=== PATIENT | female | born 1980 | race Caucasian/White ===

== ENCOUNTER → 2017-07-15 | Outpatient (CLI) | payer BC, OTHER ==
--- NOTE | 2017-07-15 15:24 | RAD ---
EXAM DESCRIPTION: Chest,2 Views CLINICAL HISTORY: 37 years Female, FEVER COMPARISON: None Available TECHNIQUE: PA/lateral FINDINGS: There is no cardiac or pulmonary abnormality. The lungs are clear. There is no effusion. IMPRESSION: 1. Normal two-view chest. Electronically signed by: Gordon Tipton MD 07/15/2017 3:22 PM CDT
== END | disposition home or self-care (01) ==
LOC: RAD 14:21
PROVIDERS: ATTEND Family Medicine
DX: R50.9 Fever, unspecified (principal)

== ENCOUNTER → 2017-07-23 | Outpatient (CLI) | payer OTHER ==
--- NOTE | 2017-07-24 07:55 | CT ---
EXAM DESCRIPTION: CT chest without and with contrast CLINICAL HISTORY: ELEVATED WHITE BLOOD CELLS COMPARISON: CT abdomen and pelvis same day TECHNIQUE: Pre and postcontrast spiral CT with multiplanar reformatted images. This exam was performed according to our departmental dose-optimization program, which includes automated exposure control, adjustment of the mA and/or kV according to patient size and/or use of iterative reconstruction technique. FINDINGS: Normal heart and mediastinum. No pulmonary edema, infiltrate or effusion. No mass or adenopathy. No bony abnormality IMPRESSION: Negative CT chest Electronically signed by: Jeffy Simpson MD 07/24/2017 7:53 AM CDT
--- NOTE | 2017-07-24 10:20 | CT ---
EXAM DESCRIPTION: CT abdomen and pelvis without and with contrast CLINICAL HISTORY: ELEVATED WHITE BLOOD CELLS COMPARISON: None Available. TECHNIQUE: Pre and postcontrast spiral CT abdomen and pelvis with intravenous iodinated nonionic contrast. Coronal and sagittal reformatted images. This exam was performed according to our departmental dose-optimization program, which includes automated exposure control, adjustment of the mA and/or kV according to patient size and/or use of iterative reconstruction technique. FINDINGS: Visualized lung bases are clear. Heart size is normal No abnormality of the liver. Normal appearance of the gallbladder. No biliary or pancreatic duct dilation No abnormality of the spleen, pancreas, adrenal glands or kidneys No mass lesion or inflammatory process in the stomach or small intestine. There is a focal hypodensity in the small intestine, probably a tablet measuring about 1 cm. No abnormality of the omentum, mesentery or retroperitoneum Mural mild fatty density in the ascending and transverse colon. Subtle minimal wall thickening descending and to a slightly greater extent short segment of the sigmoid colon. Scattered diverticula without surrounding inflammation. No mass lesion of the large intestine Pelvic viscera normal No acute bony abnormality IMPRESSION: Mild wall thickening of the large intestine, sigmoid colon which may be infectious or inflammatory etiology. Scattered small diverticula without diverticulitis Otherwise unremarkable CT abdomen and pelvis Electronically signed by: Jeffy Simpson MD 07/24/2017 10:18 AM CDT
== END | disposition home or self-care (01) ==
LOC: CT 08:56
PROVIDERS: ATTEND Family Medicine
DX: K57.32 Diverticulitis of large intestine without perforation or abscess without bleeding (principal); D72.829 Elevated white blood cell count, unspecified

== ENCOUNTER → 2017-08-01 | Outpatient (CLI) | payer OTHER | LOC: GMA 10:08 | PROVIDERS: ATTEND Nurse Practitioner Acute Care | DX: N30.00 Acute cystitis without hematuria (principal) ==

== ENCOUNTER → 2019-01-08 | Outpatient (CLI) | payer BC | LOC: GMAH 11:16 | PROVIDERS: ATTEND Family Medicine | DX: D72.829 Elevated white blood cell count, unspecified (principal) ==

== ENCOUNTER → 2019-09-14 | Outpatient (CLI) | payer BC, OTHER ==
--- NOTE | 2019-09-14 12:32 | MRI ---
MRI right shoulder without contrast INDICATION: Shoulder pain status post fall last week initial encounter TECHNIQUE: Noncontrast MR imaging right shoulder standard protocol FINDINGS: Subscapularis is intact. No bicep rupture or dislocation. There is a nondisplaced fracture of the greater tuberosity with adjacent marrow edema. No elevation related to the rotator cuff attachments. The insertional footprints of both the supraspinatus and anterior infraspinatus are involved. Mild adjacent bursal edema. Minimal cystic change at the base the fracture. No muscle atrophy. No glenoid fracture. IMPRESSION: Nonspecific fracture greater tuberosity right shoulder with adjacent marrow edema No full-thickness rotator cuff tear or retraction Mild bursal edema Electronically signed by: Woo Cortes MD 09/14/2019 12:30 PM CDT
== END ==
LOC: MRI 09:05
PROVIDERS: ATTEND Family Medicine
DX: S42.254A Nondisplaced fracture of greater tuberosity of right humerus, initial encounter for closed fracture (principal); M71.9 Bursopathy, unspecified